=== PATIENT | male | born 1965 | race Hispanic/Latino ===

== ENCOUNTER 2017-05-07 09:31 | Emergency (ER) | payer MEDICARE ==
[2017-05-07 09:54] LABS: Basophils % (Auto) 0.5 % (0.0-1.8); Eosinophils % (Auto) 2.1 % (0.0-4.3); Hematocrit 48.1 % (35.5-45.6); Hemoglobin 16.5 gm/dl (11.8-15.2); Mean Corpuscular HGB Conc 34 % (32-34); Mean Corpuscular Hemoglobin 34 pg (28-32); Mean Corpuscular Volume 99 fl (84-94); Platelet Count 244 K/mm3 (140-440); Red Blood Count 4.85 M/mm3 (3.65-5.03); Red Cell Distribution Width 13.1 % (13.2-15.2); White Blood Count 8.7 K/mm3 (4.5-11.0)
[2017-05-07 10:15] LABS: Alanine Aminotransferase 6 units/L (7-56); Albumin 4.1 g/dL (3.9-5); Albumin/Globulin Ratio 1.4 %; Alkaline Phosphatase 54 units/L (35-129); Anion Gap 20 mmol/L; BUN/Creatinine Ratio 8; Blood Urea Nitrogen 6 mg/dL (9-20); Calcium 8.8 mg/dL (8.4-10.2); Carbon Dioxide 21 mmol/L (22-30); Glucose 92 mg/dL (75-100); Lipase 39 units/L (13-60); Potassium 3.9 mmol/L (3.6-5.0); Sodium 142 mmol/L (137-145)
[2017-05-07] MEDS ORDERED: BENTYL PO ONE (11:54)
[2017-05-07] MEDS ORDERED: SUBLIMAZE IV ONE (11:54)
[2017-05-07] MEDS ORDERED: CARAFATE PO ONE (11:54)
[2017-05-07] MEDS ORDERED: PEPCID IV ONE (11:54)
[2017-05-07] MEDS ORDERED: ZOFRAN IV ONE (11:54)
[2017-05-07] MEDS ORDERED: NACL 0.9% 500 ML 500 ML IV ONE (11:54)
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
[2017-05-07 12:02] LABS: Bilirubin,Urine NEG (Negative); Blood,Urine NEG (Negative); Ketones,Urine TR mg/dL (Negative); Leukocyte Esterase,Urine NEG (Negative); Mucus,Urine FEW /HPF; Nitrite,Urine NEG (Negative); Protein,Urine <15 mg/dL mg/dL (Negative); RBC,Urine < 1.0 /HPF (0.0-6.0); Urobilinogen,Urine < 2.0 mg/dL (<2.0)
[2017-05-07 13:53] VITALS: BP 147/99
--- NOTE | 2017-05-07 14:08 | Cat Scan Report ---
FINAL REPORT PROCEDURE: CT ABDOMEN PELVIS W CON TECHNIQUE: Computerized axial tomography of the abdomen and pelvis was performed after the IV injection of iodinated nonionic contrast. Oral contrast was also given. HISTORY: abd pain COMPARISON: None FINDINGS: Visualized lower thorax: Mild subsegmental atelectasis bilaterally. Coronary artery calcifications. Liver: No focal abnormality. Spleen: No focal abnormality. Gallbladder and biliary system: Normal. Pancreas: Normal. Adrenals: Normal. Kidneys: Tiny right renal calculus. No hydronephrosis. Unremarkable left kidney. GI tract: No evident lesion or obstruction. Lymph nodes and mesentery: Normal. Vasculature: No abdominal aortic aneurysm. Bladder: Normal. Reproductive organs: Normal. Peritoneum: No ascites. Musculoskeletal structures: Mild wedge compression deformity of the T12 vertebral body. Thoracolumbar posterior fusion. Largely mild degenerative changes of the spine. This is worst on the left at L5/S1 with left foraminal stenosis. Healed left posterior rib fractures. Other: None. IMPRESSION: Coronary artery calcifications. Tiny right renal calculus. No hydronephrosis. Wedge compression deformity of the T12 vertebral body. Posterior thoracolumbar metallic fusion. Left L5/S1 degenerative foraminal stenosis. Healed left posterior rib fractures.
== END 2017-05-07 14:35 | disposition home or self-care (01) ==
LOC: ED 09:31
DX: R10.9 Unspecified abdominal pain (principal); F17.200 Nicotine dependence, unspecified, uncomplicated; Z88.1 Allergy status to other antibiotic agents
CPT/HCPCS: 36415; 74177; 80053; 81001; 83690; 85025; 96374; 96375; 99284; J2405; J3010; J7040; Q9967

== ENCOUNTER 2019-05-19 10:35 | Emergency (ER) | payer MEDICARE ==
[2019-05-19 10:56] VITALS: BP 127/96
--- NOTE | 2019-05-19 11:44 | Event Note ---
ED Screening Note ED Screening Note: pt presents with left lower back pain that began yesterday hx of chronic back pain states he has rods states the pain radiates down the left leg PMHx erosive PUD, rib fx allergy: sulfa pt walks with a cane This initial assessment/diagnostic orders/clinical plan/treatment(s) is/are subject to change based on patients health status, clinical progression and re- assessment by fellow clinical providers in the ED. Further treatment and workup at subsequent clinical providers discretion. Patient/guardian urged not to elope from the ED as their condition may be serious if not clinically assessed and managed.
[2019-05-19] MEDS ORDERED: predniSONE 20 MG TAB PO ONE (16:50)
[2019-05-19] MEDS ORDERED: KETOROLAC 60 MG/2 ML INJ IM ONE (16:50)
--- NOTE | 2019-05-19 17:50 | XRay Report ---
Lumbar spine-4 views INDICATION: pain. COMPARISON: None. IMPRESSION: Grade 1 anterolisthesis of L4 on L5 with otherwise normal alignment. There is a posterio r construct spanning the thoracolumbar junction where there is an old wedge compression fracture. No hardware complication identified. Mild multilevel discogenic DJD identified with nothing acute. Signer Name: Ismael Harris MD Signed: 05/19/2019 5:46 PM Workstation Name: [id number]
--- NOTE | 2019-05-19 17:51 | XRay Report ---
Rib series-3 views INDICATION: Left lower back pain since yesterday. COMPARISON: None. IMPRESSION: No acute osseous or soft tissue abnormality. Clear lungs with normal heart size. Signer Name: Ismael Harris MD Signed: 05/19/2019 5:47 PM Workstation Name: [id number]
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
== END 2019-05-19 18:25 | disposition home or self-care (01) ==
LOC: ED 10:35
DX: S39.012A Strain of muscle, fascia and tendon of lower back, initial encounter (principal); S20.211A Contusion of right front wall of thorax, initial encounter; Z98.890 Other specified postprocedural states; F17.200 Nicotine dependence, unspecified, uncomplicated; F12.10 Cannabis abuse, uncomplicated; Z79.899 Other long term (current) drug therapy; Z88.2 Allergy status to sulfonamides; W01.198A Fall on same level from slipping, tripping and stumbling with subsequent striking against other object, initial encounter; Y93.89 Activity, other specified; Y92.89 Other specified places as the place of occurrence of the external cause; Y99.8 Other external cause status
CPT/HCPCS: 71101; 72100; 96372; 99283; J1885; J7512